=== PATIENT | female | born 1980 | race Caucasian/White ===

== ENCOUNTER 2017-03-01 15:40 | Emergency (ER) | payer SELFPAY ==
[2017-03-01 15:55] VITALS: TEMP 97.9
--- NOTE | 2017-03-01 16:46 | RAD ---
PROCEDURE: Left Foot Radiographs. HISTORY: pain COMPARISON: None. FINDINGS: BONES: Inferior calcaneal spurring. . No fracture. Mild hammertoe like orientations. Fifth toe sissoring over the 4th JOINTS: First metatarsal-phalangeal joint osteoarthrosis SOFT TISSUES: Dorsal and dorsal lateral soft tissue swelling. OTHER FINDINGS: Os peroneum. IMPRESSION: No fracture or dislocation. Soft tissue swelling First metatarsal-phalangeal joint osteoarthrosis. Os peroneum
--- NOTE | 2017-03-01 16:56 | C.PDOC ---
History Of Present Illness 36 yr old female presents to the ER s/p fall on the street. Patient reports of pain to the left foot, 2nd, 3rd and 4th toe. Patient denies leg pain, weakness or numbness. Time Seen by Provider: 03/01/17 16:20 Chief Complaint (Nursing): Lower Extremity Problem/Injury History Per: Patient History/Exam Limitations: no limitations Onset/Duration Of Symptoms: Sudden Onset (VALVE TESTER) Current Symptoms Are (Timing): Still Present Past Medical History Reviewed: Historical Data, Nursing Documentation, Vital Signs Vital Signs: Last Vital Signs Temp 97.9 F 03/01/17 15:51 Pulse 65 03/01/17 17:05 Resp 18 03/01/17 17:05 BP 118/75 03/01/17 17:05 Pulse Ox 99 03/01/17 17:36 Family History: States: No Known Family Hx - Social History Hx Alcohol Use: No Hx Substance Use: No - Immunization History Hx Tetanus Toxoid Vaccination: No Hx Pneumococcal Vaccination: No Review Of Systems Except As Marked, All Systems Reviewed And Found Negative. Musculoskeletal: Positive for: Other ((+) Left foot, 2nd, 3rd and 4th toe pain) . Negative for: Leg Pain Neurological: Negative for: Weakness, Numbness Physical Exam - Physical Exam Appears: Non-toxic, No Acute Distress Skin: Warm, Dry Head: Atraumatic, Normacephalic Respiratory: Normal Breath Sounds, No Rales, No Rhonchi, No Stridor, No Wheezing Extremity: Normal ROM, No Calf Tenderness, Capillary Refill (<2 secs), Other ((+ ) Left Foot - Tenderness and swelling to the left 2nd, 3rd and 4th toe.) Pulses: Left Dorsalis Pedis: Normal, Right Dorsalis Pedis: Normal Neurological/Psych: Oriented x3, Normal Speech, Normal Motor, Normal Sensation, Normal Reflexes ED Course And Treatment O2 Sat by Pulse Oximetry: 99 (RA) Pulse Ox Interpretation: Normal - Other Rad X-Ray - Left Foot X-Ray: Viewed By Me, Read By Radiologist Interpretation: PROCEDURE: Left Foot Radiographs. HISTORY: pain. COMPARISON : None. FINDINGS: BONES: Inferior calcaneal spurring. . No fracture. Mild hammertoe like orientations. Fifth toe sissoring over the 4th. JOINTS: First metatarsal-phalangeal joint osteoarthrosis. SOFT TISSUES: Dorsal and dorsal lateral soft tissue swelling. OTHER FINDINGS: Os peroneum. IMPRESSION: No fracture or dislocation. Soft tissue swelling. First metatarsal-phalangeal joint osteoarthrosis. Os peroneum Medical Decision Making Medical Decision Making: PLAN: * X-Ray - Left Foot * Tylenol PO XR L foot : no fracture, +djd of the 1st MTP joint noted, no dislocation, as read by PA. Disposition Counseled Patient/Family Regarding: Studies Performed, Diagnosis, Need For Followup, Rx Given - Disposition Referrals: [facility] [Outside] Disposition: HOME/ ROUTINE Disposition Time: 16:54 Condition: STABLE Additional Instructions: Follow up with the clinic in 2 days without fail. Take medication as prescribed. Return to the ER at any time for any new or worsening symptoms. Prescriptions: Naproxen 500 mg PO BID #30 tab Instructions: Foot Contusion (ED), Arthritis (ED) Forms: [employer] (Chadian), Work Excuse Print Language: ROMANSH - Clinical Impression Clinical Impression: Contusion of foot, left - PA / SIZER MACHINE / Resident Statement MD/DO has reviewed & agrees with the documentation as recorded. - Scribe Statement The provider has reviewed the documentation as recorded by the Scribe Savanna Garcia All medical record entries made by the Daphnie were at my direction and personally dictated by me. I have reviewed the chart and agree that the record accurately reflects my personal performance of the history, physical exam, medical decision making, and the department course for this patient. I have also personally directed, reviewed, and agree with the discharge instructions and disposition.
[2017-03-01 17:17] VITALS: BP 118/75; PULSE 65; RESP 18
[2017-03-01 17:35] VITALS: O2SAT 99
== END 2017-03-01 17:06 | disposition home or self-care (01) ==
LOC: C.ER 15:40
DX: S90.32XA Contusion of left foot, initial encounter (principal); W18.30XA Fall on same level, unspecified, initial encounter; Y92.410 Unspecified street and highway as the place of occurrence of the external cause